=== PATIENT | female | born 1970 | race Two or more races ===

== ENCOUNTER 2020-10-12 15:41 | Emergency (ER) | payer MEDICAID, OTHER ==
[~2020-10-12] VITALS: Ht 160 cm; Wt 113.4 kg
[2020-10-12] MEDS ORDERED: KETOROLAC TROMETH 30 MG/ML 1ML VIAL IV ONE (16:45)
[2020-10-12 17:24] VITALS: BP 141/90
== END 2020-10-12 18:05 | disposition home or self-care (01) ==
LOC: ER 15:41 → EDBD 15:41 → ER 18:05
DX: S56.912A Strain of unspecified muscles, fascia and tendons at forearm level, left arm, initial encounter (principal); S80.212A Abrasion, left knee, initial encounter; W01.0XXA Fall on same level from slipping, tripping and stumbling without subsequent striking against object, initial encounter; Y93.89 Activity, other specified; Y92.89 Other specified places as the place of occurrence of the external cause; Y99.8 Other external cause status
CPT/HCPCS: 73090; 73562; 96374; 99284; J1885